=== PATIENT | female | born 2000 | race Caucasian/White ===

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

== ENCOUNTER 2020-01-13 00:37 | Emergency (ER) | payer BC ==
[2020-01-13 01:33] LABS: Amphetamine Screen,Urine Not Detected (NotDetected); Barbiturate Screen,Urine Not Detected (NotDetected); Benzodiazepines Screen,Urine Not Detected (NotDetected); Cocaine Screen,Urine Not Detected (NotDetected); Methadone Screen, Urine Not Detected (NotDetected); Opiate Screen,Urine Not Detected (NotDetected); Oxycodone Screen, Urine Not Detected (NotDetected); Phencyclidine Screen,Urine Not Detected (NotDetected); Tricyclic Antidepressant,Urine Not Detected (NotDetected); Urn Cannabinoid Scrn Detected (NotDetected)
--- NOTE | 2020-01-13 02:59 | ED ---
General Adult HPI - General Source: patient, RN notes reviewed, old records reviewed Mode of arrival: ambulatory Limitations: no limitations <Wali Mancia - Last Filed: 01/13/20 03:06> <Rajiv Kent - Last Filed: 01/13/20 15:38> - General Chief complaint: Psychiatric Symptoms Stated complaint: Petition Time Seen by Provider: 01/13/20 00:53 - History of Present Illness Initial comments: 19-year-old female patient brought in police for petition. Patient was reportedly with friends she was depressed and suicidal ideation by jumping in the river. Patient reports that she has been having stresses with her boyfriend. Denies any physical complaints. Denies any other complaints. Denies any current suicidal or homicidal ideations. (Wali Mancia) - Related Data Home Medications Medication Instructions Recorded Confirmed Cyclafem 7-7-7-28 1 tab PO HS 01/13/20 01/13/20 Sertraline [Zoloft] 50 mg PO HS 01/13/20 01/13/20 Allergies Allergy/AdvReac Type Severity Reaction Status Date / Time No Known Allergies Allergy Verified 01/13/20 06:56 Review of Systems ROS Other: All systems not noted in ROS Statement are negative. <Wali Mancia - Last Filed: 01/13/20 03:06> ROS Other: All systems not noted in ROS Statement are negative. <Rajiv Kent - Last Filed: 01/13/20 15:38> ROS Statement: Those systems with pertinent positive or pertinent negative responses have been documented in the HPI. Past Medical History Past Medical History: No Reported History History of Any Multi-Drug Resistant Organisms: None Reported Past Surgical History: No Surgical Hx Reported Past Psychological History: No Psychological Hx Reported Smoking Status: Never smoker Past Alcohol Use History: None Reported Past Drug Use History: None Reported <Wali Mancia - Last Filed: 01/13/20 03:06> General Exam Limitations: no limitations <Wali Mancia - Last Filed: 01/13/20 03:06> - General Exam Comments Initial Comments: Constitutional: NAD, AOX3, Pt has pleasant affect. HEENT: NC/AT, trachea midline, neck supple. Posterior pharynx non erythematous, without exudates. External ears appear normal, without discharge. Mucous membranes moist. EOM intact. There is no scleral icterus. No pallor noted. Cardiopulmonary: RRR, no murmurs, rubs or gallops, no JVD noted. Lungs CTAB in anterior and posterior mckinley. No peripheral edema. Neuro: CN II-XII grossly intact. No nuchal rigidity. No raccon eyes, no kaminski sign. MSK: Full active ROM in upper and lower extremities, 5/5 stregnth. (Wali Mancia) Course Vital Signs 01/13/20 01/13/20 01/13/20 00:45 06:42 09:20 Temperature 98.7 F 97.6 F Pulse Rate 93 88 81 Respiratory 18 16 16 Rate Blood Pressure 117/75 109/52 122/74 O2 Sat by Pulse 99 98 99 Oximetry 01/13/20 15:00 Temperature Pulse Rate 89 Respiratory 16 Rate Blood Pressure 132/79 O2 Sat by Pulse 99 Oximetry Medical Decision Making <Wali Mancia - Last Filed: 01/13/20 03:06> <Rajiv Kent - Last Filed: 01/13/20 15:38> - Medical Decision Making Patient signed out to Dr. Robledo pending EPS evaluation. Repeat evaluation patient continues to deny any suicidal or homicidal ideation. (Wali Mancia) Patient was seen by mental health services with plan for discharge. Patient reevaluated and denies suicidal ideation. Patient does contract for safety. Patient agreeable to return if symptoms worsen. (Rajiv Kent) - Lab Data Lab Results 01/13/20 01/13/20 Range/Units 01:05 01:05 Urine HCG, Qual Not Detected (Not Detectd) Urine Opiates Screen Not Detected (NotDetected) Ur Oxycodone Screen Not Detected (NotDetected) Urine Methadone Screen Not Detected (NotDetected) Ur Propoxyphene Screen Not Detected (NotDetected) Ur Barbiturates Screen Not Detected (NotDetected) U Tricyclic Antidepress Not Detected (NotDetected) Ur Phencyclidine Scrn Not Detected (NotDetected) Ur Amphetamines Screen Not Detected (NotDetected) U Methamphetamines Scrn Not Detected (NotDetected) U Benzodiazepines Scrn Not Detected (NotDetected) Urine Cocaine Screen Not Detected (NotDetected) U Marijuana (THC) Screen Detected H (NotDetected) Disposition <Wali Mancia - Last Filed: 01/13/20 03:06> Is patient prescribed a controlled substance at d/c from ED?: No Time of Disposition: 15:38 <Rajiv Kent - Last Filed: 01/13/20 15:38> Clinical Impression: Depression Disposition: HOME SELF-CARE Condition: Stable Instructions (If sedation given, give patient instructions): Alcohol Intoxication (ED) Referrals: Liliana Villatoro MD [Primary Care Provider] - 1-2 days
[2020-01-13 06:43] VITALS: RESP 16; TEMP 97.6
[2020-01-13 15:34] VITALS: BP 132/79; PULSE 89
== END 2020-01-13 15:35 | disposition home or self-care (01) ==
LOC: EC 00:37
DX: F32.9 Major depressive disorder, single episode, unspecified (principal); F43.9 Reaction to severe stress, unspecified; Z79.899 Other long term (current) drug therapy
CPT/HCPCS: 80306; 81025; 82075; 99284

== ENCOUNTER → 2020-03-31 | Outpatient (CLI) | payer BC ==
[2020-03-31 13:29] VITALS: BP 130/83; PULSE 83; RESP 18; TEMP 97.9
--- NOTE | 2020-03-31 14:41 | P.HPOB ---
History of Present Illness H&P Date: 03/31/20 Chief Complaint: Ex boyfriend was diagnosed with chlamydia. This is a 19-year-old G0 with an LMP of 03/05/2020. The patient is here to establish with this office. She states about 6 months ago she had her annual gynecologic exam with her PCP. She recently was told by an ex-boyfriend that he was diagnosed with chlamydia. The patient denies vaginal discharge, abdominal or pelvic pain, and fever. She is on oral contraception for control. She has used condoms but did not use condoms consistently with her ex-boyfriend. She states they broke up about 1-2 months ago and she has not been with anybody else since then. She has had about 5 sexual partners since she became sexually active at age 15. Review of Systems The patient's weight has been stable over the last year. She denies respiratory, cardiac, or G.I. problems. Past Medical History Past Medical History: No Reported History Additional Past Medical History / Comment(s): PAST [employer] HISTORY: She has no history of STDs. History of Any Multi-Drug Resistant Organisms: None Reported Past Surgical History: No Surgical Hx Reported Past Psychological History: Anxiety, Depression Smoking Status: Never smoker Past Alcohol Use History: Rare (One per month) Past Drug Use History: Marijuana Additional History: She is currently unemployed but is looking for job. She would like to attend college in the future. She has had about 5 sexual partners since she became sexually active at age 15. She is single. - Past Family History Father Family Medical History: Sleep Apnea/CPAP/BIPAP Mother Family Medical History: No Reported History Additional Family Medical History / Comment(s): Maternal grandmother had breast cancer. Medications and Allergies Home Medications Medication Instructions Recorded Confirmed Type Sertraline [Zoloft] 50 mg PO HS 01/13/20 03/31/20 History Pirmella Oral Contraceptive 1 tab PO HS 03/31/20 03/31/20 History Allergies Allergy/AdvReac Type Severity Reaction Status Date / Time No Known Allergies Allergy Verified 03/31/20 13:24 Exam Vital Signs Temp Pulse Resp BP Pulse Ox 03/31/20 13:26 97.9 F 83 18 130/83 98 Intake and Output 03/30/20 03/31/20 03/31/20 22:59 06:59 14:59 Other: Weight 52.163 kg Height 5 feet 0 inches, weight 115 pounds, BMI 22.5. This is a well-developed well-nourished white female who is alert and oriented times 3 in no acute distress. HEENT: Within normal limits. CHEST AND LUNGS: Clear to auscultation. HEART: Regular rate and rhythm. BACK: Negative for CVA tenderness. ABDOMEN: Soft, nontender, without palpable masses. PELVIC EXAM: Normal external genitalia. Cervix and vagina appear normal. There there is a slight mucousy whitish discharge without odor. There is no evidence of prolapse. The uterus is midposition, nongravid size and nontender. There are no palpable adnexal masses or tenderness. RECTAL EXAM: Deferred EXTREMITIES: Nontender. IMPRESSION: 1. 19-year-old female on oral contraception with probable chlamydia exposure from her ex-boyfriend. 2. Vaginal discharge. Differential diagnosis will include chlamydia cervicitis, saroj vaginitis, Trichomonas, bacterial vaginosis, and physiologic discharge. PLAN: 1. Pap smear was deferred until age 20. 2. STD prevention was discussed. I have stressed the importance of limiting sexual partners and I recommended that she use condoms if she is to be sexually active. 3. We have discussed control pills including possible risks including increased risk for blood clots. She states she has a prescription for the control pills from her PCP. 4. She will be treated with Zithromax 1 g by mouth 1 for suspected chlamydia exposure. The electronic prescription will be sent to [facility] pharmacy. 5. STD testing will include GC and chlamydia testing which has been obtained from the cervix. Affirm testing for saroj, Gardnerella, and Trichomonas was obtained from the vagina. Blood tests for STDs will include HIV, RPR, hepatitis B surface antigen, and hepatitis C antibody. The patient will be taken have this drawn today. 6. I have recommended that she look into getting the HPV vaccination from the health department. 7. She will return in approximate 6 months for her annual well woman examination. She was instructed to call if she needs refills on her control pills.
== END | disposition home or self-care (01) ==
LOC: WWCWWP 13:06
PROVIDERS: ATTEND Obstetrics & Gynecology
DX: Z53.9 Procedure and treatment not carried out, unspecified reason (principal)

== ENCOUNTER → 2020-03-31 | Outpatient (CLI) | payer BC ==
[2020-04-01 05:04] LABS: Hepatitis B Surface Antigen Non-Reactive (Non-Reactive); Hepatitis C IgG Antibody Non-Reactive (Non-Reactive)
[2020-04-01 19:04] LABS: HIV 2 AB Non-Reactive (Non-Reactive); HIV AB P24 Non-Reactive (Non-Reactive); HIV P24 AG Non-Reactive (Non-Reactive)
--- NOTE | 2020-04-08 14:09 | P.PN ---
Progress Note - Text Progress Note Date: 04/08/20 OUTPATIENT FOLLOW-UP NOTE TEST(S)/RESULTS: Test results from 03/31/2020 include negative GC, negative chlamydia, negative HIV, negative RPR, negative hepatitis B surface antigen, and negative hepatitis C antibody. Affirm testing was also negative for chlamydia, Gardnerella, and Trichomonas. METHOD OF NOTIFICATION: Patient was notified by phone. PATIENT COMMENTS: He did take the Zithromax as directed. DIAGNOSIS: Negative STD screening. DISCUSSION: I have stressed the importance of the preventing STDs. We have also discussed the HPV vaccination series. She believes she may have had this done and will check with her doctor to see if it was done. If not, she can have this done at the health department. PLAN: She was advised to return in one year for her annual well woman exam.
== END | disposition home or self-care (01) ==
LOC: LABWHC1 14:30
PROVIDERS: ATTEND Obstetrics & Gynecology
DX: Z11.3 Encounter for screening for infections with a predominantly sexual mode of transmission (principal)
CPT/HCPCS: 36415; 86780; 86803; 87340; 87390